=== PATIENT | male | born 1945 | race Caucasian/White ===

== ENCOUNTER 2020-09-12 22:27 | Emergency (ER) | payer OTHER ==
[~2020-09-12] VITALS: Ht 172.7 cm; Wt 85.7 kg
[2020-09-12 22:39] VITALS: Ht 172.7 cm; Wt 85.7 kg
[2020-09-13 00:32] LABS: BASOPHIL % 0.7 % (0.2-1.5); PLATELET COUNT 182 x10^3mcL (152-348); RED CELL DISTRIBUTION WIDTH 13.2 % (12.1-16.2)
[2020-09-13 00:39] LABS: CALCIUM 8.9 mg/dL (8.5-10.1); CARBON DIOXIDE 28.1 mmol/L (21-32); CHLORIDE SERUM 103 mmol/L (98-107); CREATININE SERUM 1.4 mg/dL (0.7-1.3); GLUCOSE SERUM 106 mg/dL (74-106); POTASSIUM SERUM 4.5 mmol/L (3.5-5.1); SODIUM SERUM 140 mmol/L (136-145)
[2020-09-13 00:44] LABS: ALBUMIN 4.3 g/dL (3.4-5.0); ALKALINE PHOSPHATASE 80 U/L (46-116); ALT/SGPT 27 U/L (16-63); AST/SGOT 23 U/L (15-37); BILIRUBIN TOTAL 0.5 mg/dL (0.20-1.00); TOTAL PROTEIN, SERUM 7.5 g/dL (6.4-8.2)
[2020-09-13 01:20] VITALS: BP 138/79
== END 2020-09-13 01:21 | disposition home or self-care (01) ==
LOC: ED 22:27
PROVIDERS: Emergency Medicine
DX: I16.0 Hypertensive urgency (principal); F41.9 Anxiety disorder, unspecified